=== PATIENT | male | born 1960 | race Caucasian/White ===

== ENCOUNTER 2018-01-24 16:36 | Emergency (ER) | payer BC ==
[2018-01-24 17:03] VITALS: BP 135/71; PULSE 84; RESP 18; TEMP 98.5
--- NOTE | 2018-01-24 17:50 | XR ---
EXAMINATION TYPE: XR wrist complete LT DATE OF EXAM: 01/24/2018 COMPARISON: NONE HISTORY: Wrist pain TECHNIQUE: 4 views FINDINGS: There is slight widening of the scapholunate joint space. I see no fracture nor dislocation . Carpal bones are intact. Scaphoid is intact. Joint spaces otherwise are normal. IMPRESSION: Widened scapholunate joint space could relate to some ligamentous instability. No fractur e seen. Mild osteoarthritis noted at the first carpometacarpal joint.
--- NOTE | 2018-01-24 19:16 | ED ---
General Adult HPI - General Chief complaint: Extremity Problem,Nontraumatic Stated complaint: wrist pain Time Seen by Provider: 01/24/18 18:02 Source: patient Mode of arrival: ambulatory Limitations: no limitations - History of Present Illness Initial comments: 57-year-old male presents to the emergency department for a chief complaint of left wrist pain. Patient states this has been ongoing for the past few weeks but is getting worse. 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 Patient states movement of the left wrist makes it worse. Patient denies pain in the left hand. Patient states it is over the dorsal aspect of his left wrist. Patient is concerned because his job requires him to hold a gun with that hand and the pain is aching that difficult. Patient denies any numbness or tingling in the fingers. Patient denies any weakness in the left hand.Patient has no other complaints at this time including shortness of breath , chest pain, abdominal pain, nausea or vomiting, headache, or visual changes. - Related Data Home Medications Medication Instructions Recorded Confirmed Metoprolol Tartrate [Lopressor] 25 mg PO HS 08/07/15 01/24/18 Simvastatin [Zocor] 20 mg PO HS 10/22/15 01/24/18 Levothyroxine Sodium [Synthroid] 50 mcg PO HS 01/24/18 01/24/18 Allergies Allergy/AdvReac Type Severity Reaction Status Date / Time No Known Allergies Allergy Verified 01/24/18 17:59 Review of Systems ROS Statement: Those systems with pertinent positive or pertinent negative responses have been documented in the HPI. ROS Other: All systems not noted in ROS Statement are negative. Past Medical History Past Medical History: Hyperlipidemia, Hypertension, Thyroid Disorder History of Any Multi-Drug Resistant Organisms: None Reported Past Surgical History: Hernia Repair, Orthopedic Surgery Additional Past Surgical History / Comment(s): Facial reconstruction; Rotator cuff repair Past Psychological History: No Psychological Hx Reported Smoking Status: Never smoker Past Alcohol Use History: Occasional Past Drug Use History: None Reported General Exam Limitations: no limitations General appearance: alert, in no apparent distress Head exam: Present: atraumatic, normocephalic, normal inspection Eye exam: Present: normal appearance. Absent: scleral icterus, conjunctival injection ENT exam: Present: normal exam, mucous membranes moist Neck exam: Present: normal inspection, full ROM. Absent: tenderness, meningismus, lymphadenopathy Respiratory exam: Present: normal lung sounds bilaterally. Absent: respiratory distress, wheezes, rales, rhonchi, stridor Cardiovascular Exam: Present: regular rate, normal rhythm, normal heart sounds. Absent: systolic murmur, diastolic murmur, rubs, gallop, clicks Extremities exam: Present: full ROM (Patient has full range of motion of the left wrist but increased pain with flexion of the left wrist), tenderness ( Patient does have scaphoid tenderness as well as radial wrist tenderness), normal capillary refill (Capillary refill less than 2 seconds and radial pulse 2 + in the left upper extremity), other (Sensation intact in the left upper extremity including all digits). Absent: joint swelling (No swelling or erythema noted in the left wrist) Neurological exam: Present: alert, oriented X3, CN II-XII intact Psychiatric exam: Present: normal affect, normal mood Skin exam: Present: warm, dry, intact, normal color. Absent: rash Course Vital Signs 01/24/18 17:01 Temperature 98.5 F Pulse Rate 84 Respiratory 18 Rate Blood Pressure 135/71 O2 Sat by Pulse 96 Oximetry Procedures - Procedures Initial comment: Neurovascular intact before splint application Indication:scapholunate dissociation Type: thumb spica Wounds: no abrasions or lacerations underneath splint Neurovascular status: patient has sensation and movement of digits extending outside the splint, there is no cyanosis, capillary refill < 2 seconds Follow-up: patient given number for orthopedics and instructed to phone to make an appointment. Patient aware he can return to the Emergency Department if any difficulties. Medical Decision Making - Medical Decision Making 57-year-old male with pain in the left wrist for the past few weeks. 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 Patient is concerned about the pain because he has to hold it down with that hand. On exam neurovascular intact. Patient is able to move the wrist with full range motion but does have increased pain. Patient does have scaphoid tenderness as well. Maura test is positive. X-ray shows widening of the scapholunate joint space that could relate to ligamentous instability. Considering this as well as scaphoid tenderness and importance to patient's job he will be splinted in a thumb spica and follow up with orthopedics. He will return if he has any worsening symptoms. Disposition Clinical Impression: Scapho-lunate dissociation Disposition: HOME SELF-CARE Condition: Good Instructions: Wrist Injury (ED) Additional Instructions: Please take Motrin and Tylenol for pain. Please rest ice and elevate the hand. Follow-up with orthopedics in 1-2 days. Return to the emergency department if you have any worsening symptoms Is patient prescribed a controlled substance at d/c from ED?: No Referrals: Manjit Anderson DO [Primary Care Provider] - 1-2 days Abdiel Jacques MD [Medical Doctor] - 1-2 days Time of Disposition: 19:16
== END 2018-01-24 19:21 | disposition home or self-care (01) ==
LOC: EC 16:36
DX: S63.512A Sprain of carpal joint of left wrist, initial encounter (principal); E78.5 Hyperlipidemia, unspecified; E07.9 Disorder of thyroid, unspecified; I10 Essential (primary) hypertension; Z98.890 Other specified postprocedural states; Z79.899 Other long term (current) drug therapy; X58.XXXA Exposure to other specified factors, initial encounter
CPT/HCPCS: 29125; 99283

== ENCOUNTER → 2018-07-31 | Outpatient (CLI) | payer BC ==
[2018-07-31 17:45] LABS: Albumin 4.6 g/dL (3.80-4.90); Albumin/Globulin Ratio 1.59 (1.60-3.17); Calcium 9.8 mg/dL (8.7-10.3); Globulin 2.9 g/dL (1.6-3.3); LDL Cholesterol,Calculated 96.4 mg/dL (0.0-131.0); Potassium 4.1 mmol/L (3.5-5.5); Total Bilirubin 0.6 mg/dL (0.3-1.2); Total Protein 7.5 g/dL (6.2-8.2); VLDL Calculation 27.6 mg/dL (5.00-40.00)
[2018-07-31 20:46] LABS: Hemoglobin A1C 6.1 % (4.0-6.0)
== END | disposition home or self-care (01) ==
LOC: LABWHC1 07:11
PROVIDERS: ATTEND Internal Medicine Endocrinology, Diabetes & Metabolism
DX: E11.65 Type 2 diabetes mellitus with hyperglycemia (principal); E03.8 Other specified hypothyroidism
CPT/HCPCS: 36415; 80053; 80061; 82043; 82570; 83036; 84443

== ENCOUNTER 2018-09-03 18:30 | Emergency (ER) | payer BC, OTHER ==
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
[2018-09-03 20:31] VITALS: BP 144/69; PULSE 59; RESP 16; TEMP 97.1
== END 2018-09-03 20:31 | disposition home or self-care (01) ==
LOC: EC 18:30
DX: S16.1XXA Strain of muscle, fascia and tendon at neck level, initial encounter (principal); E78.5 Hyperlipidemia, unspecified; I10 Essential (primary) hypertension; E07.9 Disorder of thyroid, unspecified; Z79.890 Hormone replacement therapy; Z79.899 Other long term (current) drug therapy; V43.62XA Car passenger injured in collision with other type car in traffic accident, initial encounter; Y93.89 Activity, other specified; Y92.410 Unspecified street and highway as the place of occurrence of the external cause; Y99.0 Civilian activity done for income or pay
CPT/HCPCS: 72125; 70450; 99284; L0120

== ENCOUNTER → 2019-01-06 | Outpatient (CLI) | payer BC ==
--- NOTE | 2019-01-07 08:04 | US ---
EXAMINATION TYPE: US carotid duplex BILAT DATE OF EXAM: 01/06/2019 COMPARISON: US CLINICAL HISTORY: M54.2 Neck left sided tenderness. EXAM MEASUREMENTS: RIGHT: Peak Systolic Velocity (PSV) cm/sec ----- Right CCA: 131.8 ----- Right ICA: 135.8 ----- Right ECA: 176.2 ICA/CCA ratio: 1.0 RIGHT: End Diastole cm/sec ----- Right CCA: 27.4 ----- Right ICA: 27.0 ----- Right ECA: 176.2 LEFT: Peak Systolic Velocity (PSV) cm/sec ----- Left CCA: 137.1 ----- Left ICA: 132.0 ----- Left ECA: 184.9 ICA/CCA ratio: 1.0 LEFT: End Diastole cm/sec ----- Left CCA: 30.7 ----- Left ICA: 31.4 ----- Left ECA: 20.0 VERTEBRALS (direction of flow): Right Vertebral: Antegrade Left Vertebral: Antegrade Rhythm: Normal Mild atherosclerotic changes IMPRESSION: 1. Slightly elevated velocities throughout without abnormal internal carotid artery common carotid ar damir ratio. This finding favors hypertension rather than focal stenosis. 2. Only mild atherosclerotic changes seen, however given the limitation of diffusely elevated velocit ies CTA of the neck could be considered if there is further concern for stenosis. Alternatively repea t ultrasound could also be performed after blood pressure management. Criteria for Assigning % of Stenosis / Diameter reduction (Estimation based on the indirect measurements of the internal carotid artery velocities (ICA PSV). 1. Normal (no stenosis)=ICA PSV < 125 cm/s: ratio < 2.0: ICA EDV<40 cm/s. 2. Less than 50% stenosis=ICA PSV < 125 cm/s: ratio < 2.0: ICA EDV<40 cm/s. 3. 50 to 69% stenosis=ICA PSV of 125 to 230 cm/s: ration 2.0 ? 4.0: ICA EDV 40-100 cm/s. 4. Greater than 70% stenosis to near occlusion= ICA PSV > 230 cm/s: ratio > 4.0: ICA EDV > 100 cm/s. 5. Near occlusion= ICA PSV velocities may be low or undetectable: variable ratio and ICA EDV. 6. Total occlusion=unable to detect flow.
== END | disposition home or self-care (01) ==
LOC: RADUSWWP 15:30
PROVIDERS: ATTEND Family Medicine
DX: I65.23 Occlusion and stenosis of bilateral carotid arteries (principal)
CPT/HCPCS: 93880

== ENCOUNTER → 2022-02-17 | Outpatient (CLI) | payer BC ==
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
== END | disposition home or self-care (01) ==
LOC: RADXRMAIN 08:58
PROVIDERS: ATTEND Family Medicine
DX: M79.671 Pain in right foot (principal)